=== PATIENT | male | born 1980 | race Caucasian/White ===

== ENCOUNTER 2020-09-30 10:09 | Observation (INO) ==
[2020-09-30] MEDS ORDERED: ASPIRIN 325 MG TABLET PO STA (10:26)
[2020-09-30] MEDS ORDERED: ONDANSETRON 4 MG/2 ML VIAL IV STA (10:26)
[2020-09-30] MEDS ORDERED: MORPHINE 2 MG/1 ML SYRINGE IV STA (10:26)
[2020-09-30] MEDS ORDERED: NITROGLYCERIN 2% OINT 1 INCH/GM PACK TOP STA (10:26)
[2020-09-30 10:55] LABS: Basophils # 0.1 10*3/uL (0.0-0.2); Basophils % 0.9 % (0.0-0.8); Eosinophils # 0.4 10*3/uL (0.0-0.87); Eosinophils % 4.4 % (0.00-10.9); Hematocrit 53.7 VOL% (42.0-52.0); Hemoglobin 17.7 GM/DL (14.0-18.0); Immature Granulocytes % 0.2 %; Immature Granulocytes Absolute 0.02 #; Lymphocytes # 3.2 10*3/uL (1.4-4.0); Lymphocytes % 37.3 % (21.2-54.2); Mean Corpuscular Volume 84.3 FL (87-102); Monocytes % 7.2 % (1.7-12.7); Platelet Count 226 T/CUMM (130-400); Red Blood Count 6.37 MC/CUMM (3.8-5.5); White Blood Count 8.4 T/CUMM (4-12)
[2020-09-30 11:11] LABS: Albumin 4.6 G/DL (3.4-5.0); Bilirubin,Total 0.7 MG/DL (0.20-1.00); Calcium 9.4 MG/DL (8.5-10.1); Osmolality,Calculated 283.2 MOS/KG (273-304); Potassium 4.4 MMOL/L (3.5-5.1); Total Protein 7.6 G/DL (6.4-8.2)
[2020-09-30] MEDS ORDERED: INSULIN LISPRO 100 UNIT/ML SUBCUT STA (11:30)
[2020-09-30] MEDS ORDERED: GLUCAGON 1 MG VIAL IM PRN (12:33)
[2020-09-30] MEDS ORDERED: ONDANSETRON 4 MG/2 ML VIAL IV PRN (12:33)
[2020-09-30] MEDS ORDERED: DEXTROSE 50% 25 GM/50 ML VIAL IV PRN (12:33)
[2020-09-30] MEDS ORDERED: ENOXAPARIN 40 MG/0.4 ML SYRINGE SUBCUT SCH (13:00)
[2020-09-30] MEDS ORDERED: NITROGLYCERIN SL 0.4 MG TABLET SL PRN (13:34)
[2020-09-30] MEDS: INSULIN LISPRO 100 UNIT/ML SUBCUT SCH ×2 (16:19→21:11)
[2020-09-30] MEDS ORDERED: ENOXAPARIN 30 MG/0.3 ML SYRINGE SUBCUT ONE (20:00)
[2020-09-30] MEDS: carvediloL 6.25 MG TABLET PO SCH (21:10)
[2020-09-30] MEDS ORDERED: SODIUM CHLORIDE 0.9% 1,000 ML IV SCH (22:00)
[2020-09-30] MEDS: ACETAMINOPHEN 325 MG TABLET PO PRN (22:04)
[2020-10-01 05:49] LABS: Basophils # 0.1 10*3/uL (0.0-0.2); Basophils % 0.6 % (0.0-0.8); Eosinophils # 0.7 10*3/uL (0.0-0.87); Eosinophils % 5.8 % (0.00-10.9); Hematocrit 48.3 VOL% (42.0-52.0); Hemoglobin 15.7 GM/DL (14.0-18.0); Immature Granulocytes % 0.6 %; Immature Granulocytes Absolute 0.07 #; Lymphocytes # 3.4 10*3/uL (1.4-4.0); Lymphocytes % 28.8 % (21.2-54.2); Mean Corpuscular HGB Conc 32.5 GM/DL (32-36); Mean Corpuscular Volume 86.9 FL (87-102); Mean Platelet Volume 9.8 FL (9.6-12.0); Neutrophils % 56.2 % (38.7-73.9); Platelet Count 199 T/CUMM (130-400); Red Blood Count 5.56 MC/CUMM (3.8-5.5); Red Cell Distribution Width 12.7 % (9.3-17.3); White Blood Count 11.8 T/CUMM (4-12)
[2020-10-01 06:00] LABS: Calcium 8.6 MG/DL (8.5-10.1); Osmolality,Calculated 280.5 MOS/KG (273-304); Potassium 4.5 MMOL/L (3.5-5.1)
[2020-10-01] MEDS: ACETAMINOPHEN 325 MG TABLET PO PRN (06:09)
[2020-10-01 06:14] LABS: Risk Ratio 6.44; VLDL Cholesterol 80.2 MG/DL
[2020-10-01] MEDS ORDERED: MAGNESIUM SULF RIDER 2 GM/50 ML PREMIX IV PRN (07:14)
[2020-10-01] MEDS ORDERED: POTASSIUM CHLORIDE RIDER 10 MEQ/100 ML PREMIX IV PRN (07:14)
[2020-10-01] MEDS: ASPIRIN EC 81 MG TABLET PO SCH ×2 (07:22→11:08)
[2020-10-01] MEDS: carvediloL 6.25 MG TABLET PO SCH ×3 (07:22→21:28)
[2020-10-01] MEDS ORDERED: diphenhydrAMINE CAP 25 MG CAPSULE ONE (07:30)
[2020-10-01] MEDS: EZETIMIBE 10 MG TABLET PO SCH ×2 (07:35→11:09)
[2020-10-01] MEDS: INSULIN LISPRO 100 UNIT/ML SUBCUT SCH ×4 (07:38→21:27)
[2020-10-01] MEDS ORDERED: MIDAZOLAM 2 MG/2 ML VIAL ONE (07:50)
[2020-10-01] MEDS ORDERED: NITROGLYCERIN DRIP 50 MG/250 ML BOTTLE IV ONE (07:50)
[2020-10-01] MEDS ORDERED: fentaNYL 100 MCG/2 ML VIAL ONE (07:50)
[2020-10-01] MEDS ORDERED: VERAPAMIL 5 MG/2 ML VIAL ONE (07:51)
[2020-10-01] MEDS ORDERED: ENOXAPARIN 100 MG/ML SYRINGE SUBCUT SCH (08:00)
[2020-10-01] MEDS ORDERED: diphenhydrAMINE CAP 50 MG CAPSULE PO ONE (08:00)
[2020-10-01] MEDS ORDERED: DIAZEPAM 5 MG TABLET PO ONE (08:00)
[2020-10-01] MEDS ORDERED: TIROFIBAN 5,000 MCG/100 ML PREMIX IV ONE (08:19)
[2020-10-01] MEDS ORDERED: TIROFIBAN 5,000 MCG/100 ML PREMIX IV SCH (08:25)
[2020-10-01] MEDS ORDERED: DEXTROSE 50% 25 GM/50 ML VIAL IV PRN (08:58)
[2020-10-01] MEDS ORDERED: GLUCAGON 1 MG VIAL IM PRN (08:58)
[2020-10-01] MEDS ORDERED: SODIUM CHLORIDE 0.9% 1,000 ML IV SCH (09:00)
[2020-10-01] MEDS: TICAGRELOR 90 MG TABLET PO SCH ×2 (11:08→21:28)
[2020-10-01] MEDS ORDERED: ROSUVASTATIN 20 MG TABLET PO SCH (21:00)
[2020-10-02 04:54] LABS: Basophils # 0.1 10*3/uL (0.0-0.2); Basophils % 0.6 % (0.0-0.8); Eosinophils # 0.6 10*3/uL (0.0-0.87); Eosinophils % 6.4 % (0.00-10.9); Hematocrit 46.9 VOL% (42.0-52.0); Hemoglobin 15.5 GM/DL (14.0-18.0); Immature Granulocytes % 0.2 %; Immature Granulocytes Absolute 0.02 #; Lymphocytes # 3.3 10*3/uL (1.4-4.0); Lymphocytes % 34.9 % (21.2-54.2); Mean Corpuscular Volume 84.8 FL (87-102); Mean Platelet Volume 9.8 FL (9.6-12.0); Monocytes % 8.1 % (1.7-12.7); Neutrophils % 49.8 % (38.7-73.9); Platelet Count 186 T/CUMM (130-400); Red Blood Count 5.53 MC/CUMM (3.8-5.5); Red Cell Distribution Width 12.5 % (9.3-17.3); White Blood Count 9.5 T/CUMM (4-12)
[2020-10-02 05:08] LABS: Calcium 8.3 MG/DL (8.5-10.1); Osmolality,Calculated 284.7 MOS/KG (273-304); Potassium 3.5 MMOL/L (3.5-5.1)
[2020-10-02 05:13] LABS: Blood Urea Nitrogen 14 MG/DL (7-18); Calcium 8.3 MG/DL (8.5-10.1); Carbon Dioxide 24 MMOL/L (21-32); Estimated Glom Filtration Rate 126 ML/MIN; Glucose 246 MG/DL (74-106); Osmolality,Calculated 283.7 MOS/KG (273-304); Potassium 3.5 MMOL/L (3.5-5.1); Sodium 138 MMOL/L (136-145)
[2020-10-02] MEDS ORDERED: POTASSIUM CHLORIDE 20 MEQ TABLET PO ONE (06:33)
[2020-10-02] MEDS ORDERED: diphenhydrAMINE CAP 50 MG CAPSULE PO ONE (08:00)
[2020-10-02] MEDS: carvediloL 6.25 MG TABLET PO SCH (08:31)
[2020-10-02] MEDS: ASPIRIN EC 81 MG TABLET PO SCH (08:31)
[2020-10-02] MEDS: TICAGRELOR 90 MG TABLET PO SCH (08:31)
[2020-10-02] MEDS: EZETIMIBE 10 MG TABLET PO SCH (08:31)
[2020-10-02] MEDS: INSULIN LISPRO 100 UNIT/ML SUBCUT SCH ×2 (08:32→13:27)
[2020-10-02 12:16] VITALS: BP 117/71
== END 2020-10-02 15:30 | disposition home or self-care (01) ==
LOC: N.EDINP 10:09 → N.ED 10:09 → N.TELES 14:56
PROVIDERS: ADMIT Hospitalist; ATTEND Hospitalist
PROC: CLCCHCL (ICD-10-PCS; 2020-10-01 09:15)

== ENCOUNTER 2020-10-06 13:19 | Observation (INO) ==
[2020-10-06] MEDS ORDERED: MORPHINE 2 MG/1 ML SYRINGE IV STA (13:46)
[2020-10-06] MEDS ORDERED: ONDANSETRON 4 MG/2 ML VIAL IV STA (13:46)
[2020-10-06 13:47] LABS: Basophils # 0.1 10*3/uL (0.0-0.2); Basophils % 1.2 % (0.0-0.8); Eosinophils # 0.5 10*3/uL (0.0-0.87); Eosinophils % 6.4 % (0.00-10.9); Immature Granulocytes % 0.4 %; Immature Granulocytes Absolute 0.03 #; Lymphocytes # 2.4 10*3/uL (1.4-4.0); Mean Corpuscular HGB Conc 33.3 GM/DL (32-36); Mean Corpuscular Volume 83.1 FL (87-102); Mean Platelet Volume 9.9 FL (9.6-12.0); Monocytes % 7.7 % (1.7-12.7); Neutrophils % 55.3 % (38.7-73.9); Platelet Count 249 T/CUMM (130-400); Red Blood Count 6.14 MC/CUMM (3.8-5.5); Red Cell Distribution Width 12.7 % (9.3-17.3); White Blood Count 8.2 T/CUMM (4-12)
[2020-10-06] MEDS ORDERED: MORPHINE 2 MG/1 ML SYRINGE ONE (13:48)
[2020-10-06 14:01] LABS: PT Patient Result 10.9 SECS (10.5-12.0); Partial Thromboplastin Time 26.9 SECS (23.9-33.8)
[2020-10-06 14:09] LABS: Albumin 4.3 G/DL (3.4-5.0); Bilirubin,Total 0.5 MG/DL (0.20-1.00); Calcium 9.5 MG/DL (8.5-10.1); Osmolality,Calculated 282.5 MOS/KG (273-304); Potassium 4.2 MMOL/L (3.5-5.1); Total Protein 7.5 G/DL (6.4-8.2)
[2020-10-06] MEDS ORDERED: ONDANSETRON 4 MG/2 ML VIAL IV PRN (15:54)
[2020-10-06] MEDS ORDERED: NITROGLYCERIN SL 0.4 MG TABLET SL PRN (16:20)
[2020-10-06] MEDS ORDERED: DEXTROSE 50% 25 GM/50 ML VIAL IV PRN (16:57)
[2020-10-06] MEDS ORDERED: GLUCAGON 1 MG VIAL IM PRN (16:57)
[2020-10-06] MEDS: ACETAMINOPHEN 325 MG TABLET PO PRN ×2 (19:46→23:31)
[2020-10-06] MEDS: ASCORBIC ACID 500 MG TABLET PO SCH (20:41)
[2020-10-06] MEDS: TICAGRELOR 90 MG TABLET PO SCH (20:41)
[2020-10-06] MEDS: carvediloL 6.25 MG TABLET PO SCH (20:41)
[2020-10-06] MEDS: INSULIN LISPRO 100 UNIT/ML SUBCUT SCH (20:45)
[2020-10-06] MEDS ORDERED: EZETIMIBE 10 MG TABLET PO SCH (21:00)
[2020-10-07 05:50] LABS: Basophils # 0.1 10*3/uL (0.0-0.2); Basophils % 1.1 % (0.0-0.8); Eosinophils # 0.7 10*3/uL (0.0-0.87); Eosinophils % 7.4 % (0.00-10.9); Hematocrit 48.5 VOL% (42.0-52.0); Hemoglobin 16.4 GM/DL (14.0-18.0); Immature Granulocytes % 0.3 %; Immature Granulocytes Absolute 0.03 #; Lymphocytes # 3.7 10*3/uL (1.4-4.0); Lymphocytes % 41.5 % (21.2-54.2); Mean Corpuscular HGB Conc 33.8 GM/DL (32-36); Mean Corpuscular Volume 84.8 FL (87-102); Monocytes % 9.2 % (1.7-12.7); Neutrophils % 40.5 % (38.7-73.9); Platelet Count 228 T/CUMM (130-400); Red Blood Count 5.72 MC/CUMM (3.8-5.5); Red Cell Distribution Width 12.8 % (9.3-17.3)
[2020-10-07] MEDS ORDERED: KETOROLAC 30 MG/1 ML VIAL IV ONE (06:32)
[2020-10-07 06:38] LABS: Albumin 3.7 G/DL (3.4-5.0); Bilirubin,Total 0.8 MG/DL (0.20-1.00); Calcium 9.2 MG/DL (8.5-10.1); Osmolality,Calculated 282.3 MOS/KG (273-304); Potassium 4.1 MMOL/L (3.5-5.1)
[2020-10-07] MEDS ORDERED: GLUCAGON 1 MG VIAL IM PRN (07:33)
[2020-10-07] MEDS ORDERED: DEXTROSE 50% 25 GM/50 ML VIAL IV PRN (07:33)
[2020-10-07] MEDS: TICAGRELOR 90 MG TABLET PO SCH (08:20)
[2020-10-07] MEDS: ASCORBIC ACID 500 MG TABLET PO SCH (08:20)
[2020-10-07] MEDS: carvediloL 6.25 MG TABLET PO SCH (08:20)
[2020-10-07] MEDS: INSULIN LISPRO 100 UNIT/ML SUBCUT SCH ×3 (08:24→16:47)
[2020-10-07] MEDS ORDERED: ASPIRIN EC 81 MG TABLET PO SCH (09:00)
[2020-10-07] MEDS ORDERED: PANTOPRAZOLE 40 MG TABLET PO SCH (09:00)
[2020-10-07] MEDS ORDERED: OMEGA 3 ACID ETHYL ESTERS 1 GM CAPSULE PO SCH (09:00)
[2020-10-07 16:54] VITALS: BP 127/69
== END 2020-10-07 17:26 | disposition home or self-care (01) ==
LOC: N.ED 13:19 → N.TELEN 13:19
PROVIDERS: ADMIT Internal Medicine Cardiovascular Disease; ATTEND Internal Medicine Cardiovascular Disease